=== PATIENT | female | born 2000 | race Hispanic/Latino ===

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

== ENCOUNTER 2020-01-01 05:11 | Emergency (ER) | payer OTHER ==
[2020-01-01 05:27] LABS: APPEARANCE,URINE Cloudy (CLEAR); BILIRUBIN,URINE Negative (NEGATIVE); COLOR,URINE Yellow (YELLOW); GLUCOSE, URINE (UA) Negative (NEGATIVE); KETONES,URINE Negative (NEGATIVE); LEUKOCYTE ESTERASE ,URINE Moderate (NEGATIVE); NITRATE,URINE Negative (NEGATIVE); OCCULT BLOOD,URINE Nonhemolyzed Trace (NEGATIVE); PH,URINE 5.5 (5.0-8.0); PROTEIN,URINE Negative (NEGATIVE)
[2020-01-01 05:34] LABS: HCG,QUAL RESULT NEGATIVE (NEGATIVE)
[2020-01-01 06:14] LABS: BACTERIA,URINE Few /HPF (None Seen); WBC,URINE 26-50 /HPF (0-1)
[2020-01-01] MEDS ORDERED: CEPHALEXIN 500 MG CAPSULE ONE (06:40)
[2020-01-01] MEDS ORDERED: PHENAZOPYRIDINE HCL 200 MG TABLET ONE (06:41)
[2020-01-01] MEDS ORDERED: FLUCONAZOLE 100 MG TAB ONE (06:41)
== END 2020-01-01 07:02 | disposition home or self-care (01) ==
LOC: EDH 05:11
DX: N39.0 Urinary tract infection, site not specified (principal)
CPT/HCPCS: 81001; 81025; 87088